=== PATIENT | male | born 1990 | race Caucasian/White ===

== ENCOUNTER → 2019-01-07 | Outpatient (CLI) | payer MEDICARE, MEDICAID ==
[2019-01-07 20:14] LABS: HEMOGLOBIN 11.3 g/dl (13.5-17.5); MEAN CORPUSCULAR HEMOGLOBIN 31.5 pg (27.0-33.0); MEAN CORPUSCULAR HGB CONC 30.5 g/dl (32.0-36.5); MEAN CORPUSCULAR VOLUME 103.1 fl (80.0-96.0); PLATELET COUNT, AUTOMATED 179 10^3/uL (150-450); RED BLOOD COUNT 3.59 10^6/uL (4.30-6.10); WHITE BLOOD COUNT 5.1 10^3/uL (4.0-10.0)
[2019-01-07 20:36] LABS: ALBUMIN 3.4 GM/DL (3.2-5.2); ALT/SGPT 18 U/L (12-78); BILIRUBIN,TOTAL 0.4 MG/DL (0.2-1.0); BLOOD UREA NITROGEN 22 MG/DL (7-18); CALCIUM LEVEL 8.9 MG/DL (8.5-10.1); CARBON DIOXIDE LEVEL 31 MEQ/L (21-32); CHLORIDE LEVEL 107 MEQ/L (98-107); CREATININE FOR GFR 1.41 MG/DL (0.70-1.30); GLOMERULAR FILTRATION RATE > 60.0 (>60); GLUCOSE, FASTING 88 MG/DL (70-100); LDH LACTATE DEHYDROGENASE 179 U/L (87-241); POTASSIUM SERUM 4.6 MEQ/L (3.5-5.1); SODIUM LEVEL 143 MEQ/L (136-145); TOTAL PROTEIN 6.5 GM/DL (6.4-8.2)
== END ==
LOC: M WUC 18:34
DX: C62.12 Malignant neoplasm of descended left testis (principal); Z08 Encounter for follow-up examination after completed treatment for malignant neoplasm

== ENCOUNTER → 2019-03-16 | Outpatient (CLI) | payer MEDICARE, MEDICAID ==
[~2019-03-16] MED LIST: GASTROGRAFIN SOLUTION 30ML (Q9963) As Ordered ONE; ISOVUE-370 76% 100ML VIAL (Q9967) As Ordered ONE
--- NOTE | 2019-03-16 13:18 | REP ---
CT chest with IV contrast: History: Malignant neoplasm of descended left testis. CT contrast dose: 100 mL of intravenous Isovue 370. No comparison study. CT findings: Digital preliminary spider assembler radiograph is unremarkable. There is residual thymic tissue in the anterior mediastinum. No spherical anterior mediastinal mass is seen. No mediastinal adenopathy is observed. No vascular abnormality is seen in the mediastinum. No pleural or pericardial effusion is observed. No pulmonary nodule, mass, or infiltrate is appreciated. There is a small zone of linear left apical pleuroparenchymal scarring. Lung chi are otherwise clear. No bony destructive lesion is appreciated. Impression: No active cardiopulmonary disease. Electronically Signed by Nate Rutherford MD 03/16/2019 01:25 P
--- NOTE | 2019-03-16 13:24 | REP ---
CT abdomen and pelvis with IV and oral contrast: History: Left testicular malignancy. No comparison study. CT contrast dose: 100 mL of intravenous Isovue 370. CT findings: There is a small quantity of pericardial fluid at the base. No significant effusion is seen. No pleural effusion or upper abdominal ascites is seen. The liver and spleen are normal in size and homogeneous in texture. No adrenal lesion is observed. No abnormality is noted in the gallbladder or the pancreas. The kidneys enhance symmetrically. There is no evidence of retroperitoneal lymphadenopathy. No pelvic adenopathy is seen. No urinary tract calculus is seen. Urinary bladder is unremarkable. Prostate and seminal vesicles appear intact. There is some fibrosis in a linear fashion in the left inguinal soft tissues post left orchiectomy. Small and large intestinal bowel loops are unremarkable. No abdominal wall defect is seen. Bone window settings show no bony destructive lesion. Impression: Postoperative changes in the left inguinal soft tissues post left orchiectomy. There is a small quantity of pericardial fluid visible at the base of the heart. Otherwise unremarkable CT study abdomen and pelvis. There is no evidence of retroperitoneal lymphadenopathy. Electronically Signed by Nate Rutherford MD 03/16/2019 01:25 P
== END ==
LOC: M RAD 09:28
DX: C62.12 Malignant neoplasm of descended left testis (principal)
CPT/HCPCS: 71260; 74177; Q9963; Q9967

== ENCOUNTER → 2019-03-20 | Outpatient (CLI) | payer MEDICARE, MEDICAID ==
[2019-03-20 14:56] LABS: BASO % 0.3 % (0.0-1.0); EOS # 0.1 10^3/uL (0.0-0.5); EOS % 1.1 % (0.0-3.0); HEMATOCRIT 46.6 % (42.0-52.0); HEMOGLOBIN 15.7 g/dl (13.5-17.5); LYMPH # 1.6 10^3/uL (1.5-5.0); LYMPH % 26.4 % (24.0-44.0); MEAN CORPUSCULAR HEMOGLOBIN 31.7 pg (27.0-33.0); MEAN CORPUSCULAR HGB CONC 33.7 g/dl (32.0-36.5); MEAN CORPUSCULAR VOLUME 94.1 fl (80.0-96.0); MONO # 0.8 10^3/uL (0.0-0.8); MONO % 12.4 % (0.0-5.0); NEUTROPHILS # 3.6 10^3/uL (1.5-8.5); NEUTROPHILS % 59.5 % (36.0-66.0); PLATELET COUNT, AUTOMATED 191 10^3/uL (150-450); RED BLOOD COUNT 4.95 10^6/uL (4.30-6.10); WHITE BLOOD COUNT 6.1 10^3/uL (4.0-10.0)
== END ==
LOC: M LAB 13:32
PROVIDERS: ATTEND Internal Medicine
DX: E03.9 Hypothyroidism, unspecified (principal); Q90.9 Down syndrome, unspecified

== ENCOUNTER 2019-03-29 17:12 | Emergency (ER) | payer MEDICARE, MEDICAID ==
[~2019-03-29] VITALS: Ht 147.3 cm; Wt 56.2 kg
[2019-03-29] MEDS ORDERED: SYNT100T PO (18:09)
[2019-03-29] MEDS ORDERED: LORA-622 PO (18:10)
[2019-03-29] MEDS ORDERED: GI COCKTAIL 50ML BTL(HYOSCYAMINE/MAALOX/LIDOCAINE VISCOUS)(1:3:1) PO ONE (18:45)
[2019-03-29 19:32] VITALS: BP 125/69
--- NOTE | 2019-03-30 06:38 | REP ---
Soft tissue neck three views: There are no comparisons. The hypopharynx and trachea are distended with air. The prevertebral soft tissues are unremarkable. The epiglottis is unremarkable. No radiopaque foreign body is identified. Vertebral body heights and alignment are unremarkable. Impression: The hypopharynx and trachea are distended with air. No radiopaque foreign body. Electronically Signed by Tye Bass MD 03/30/2019 06:30 A
== END 2019-03-29 19:35 | disposition home or self-care (01) ==
LOC: M ED 17:12
DX: R09.89 Other specified symptoms and signs involving the circulatory and respiratory systems (principal); Z88.0 Allergy status to penicillin; Z88.1 Allergy status to other antibiotic agents

== ENCOUNTER → 2019-04-07 | Outpatient (CLI) | payer MEDICARE, MEDICAID ==
[~2019-04-07] MED LIST changes: -GASTROGRAFIN SOLUTION 30ML (Q9963) As Ordered ONE; -ISOVUE-370 76% 100ML VIAL (Q9967) As Ordered ONE; +LORA-622 PO; +SYNT100T PO
--- NOTE | 2019-04-07 15:52 | REP ---
Left foot four views : There is no fracture or dislocation. Mineralization and joint spaces are normal. There are no calcifications or foreign bodies. Impression: Negative left foot . Electronically Signed by Tye Bass MD 04/07/2019 03:43 P
== END ==
LOC: M WUC 15:06
PROVIDERS: ATTEND Internal Medicine
DX: M79.672 Pain in left foot (principal)

== ENCOUNTER → 2019-04-09 | Outpatient (CLI) | payer MEDICARE, MEDICAID | LOC: M WUC 14:00 | PROVIDERS: ATTEND Internal Medicine Hematology & Oncology | DX: C62.12 Malignant neoplasm of descended left testis (principal) ==

== ENCOUNTER → 2019-06-17 | Outpatient (CLI) | payer MEDICARE, MEDICAID ==
[~2019-06-17] MED LIST changes: +LEVO50TA5 PO
== END ==
LOC: M WUC 09:28
PROVIDERS: ATTEND Internal Medicine
DX: E03.9 Hypothyroidism, unspecified (principal)

== ENCOUNTER → 2019-06-24 | Outpatient (CLI) | payer MEDICARE, MEDICAID ==
[~2019-06-24] MED LIST changes: +GASTROGRAFIN SOLUTION 30ML (Q9963) As Ordered ONE; +ISOVUE-370 76% 100ML VIAL (Q9967) As Ordered ONE
--- NOTE | 2019-06-24 11:26 | REP ---
REASON: Followup. Patient has a history of testicular carcinoma. COMPARISON: 03/16/2019. CONTRAST: 100 mL Isovue 370. For description of the lung bases please see CT report made the same day. The liver, gallbladder, spleen, pancreas, adrenal glands, and kidneys are again seen to be within normal limits and unchanged. Once again, there is bilateral extrarenal pelvis. The abdominal aorta and paraaortic regions are unchanged. Small paraaortic lymph nodes are noted status quo. There is no sveta paraaortic adenopathy. The bowel loops and their mesenteries are essentially unchanged. No mesenteric adenopathy has developed. There is no free fluid or free air. CT PELVIS: The pelvic bowel loops and their mesenteries are unchanged. No pelvic mass or adenopathy has developed. There is no free fluid or free air. Bone window technique throughout the exam shows the osseous structures to be stable and intact. IMPRESSION: No acute disease or significant change in the appearance of the abdomen and pelvis when compared to the prior exam. Electronically Signed by Quirino Bryant DO 06/24/2019 11:53 A
--- NOTE | 2019-06-24 11:30 | REP ---
REASON: History of testicular carcinoma. COMPARISON: Latest prior 03/16/2019, in fact, the only prior. CONTRAST: 100 mL Isovue 370. The anterior mediastinal soft tissue density seen on the prior examination has increased in size. No hilar adenopathy or other abnormalities have developed. There are no pleural effusions. There is a tiny inferior pericardial effusion, which is unchanged. Four a description of the imaged upper abdomen, see abdominal and pelvis CT report made the same day. Evaluation of the lung chi shows no abnormal nodules, masses, or opacities. IMPRESSION: Increased soft tissue density in the anterior mediastinum. Although the finding might represent residual reactive phrenic tissue, it cannot be stated with certainty at this time and especially given the patient's history. This needs to be correlated clinically. Consultation with thoracic surgery is recommended. Consider thoracic MRI before and after intravenous gadolinium. Electronically Signed by Quirino Bryant DO 06/24/2019 11:54 A
== END ==
LOC: M RAD 09:00
PROVIDERS: ATTEND Internal Medicine Hematology
DX: C62.90 Malignant neoplasm of unspecified testis, unspecified whether descended or undescended (principal)
CPT/HCPCS: 71260; 74177; Q9963; Q9967

== ENCOUNTER → 2019-08-27 | Outpatient (CLI) | payer MEDICARE, MEDICAID ==
[~2019-08-27] MED LIST changes: -GASTROGRAFIN SOLUTION 30ML (Q9963) As Ordered ONE; +HYDR-3363 PO; -ISOVUE-370 76% 100ML VIAL (Q9967) As Ordered ONE
[2019-08-27 10:27] LABS: BASO % 0.7 % (0.0-1.0); EOS % 0.7 % (0.0-3.0); HEMOGLOBIN 15.2 g/dl (13.5-17.5); LYMPH # 1.3 10^3/uL (1.5-5.0); LYMPH % 30.3 % (24.0-44.0); MEAN CORPUSCULAR HEMOGLOBIN 32.8 pg (27.0-33.0); MEAN CORPUSCULAR HGB CONC 33.8 g/dl (32.0-36.5); MONO # 0.4 10^3/uL (0.0-0.8); MONO % 10.2 % (0.0-5.0); NEUTROPHILS # 2.5 10^3/uL (1.5-8.5); NEUTROPHILS % 57.9 % (36.0-66.0); PLATELET COUNT, AUTOMATED 137 10^3/uL (150-450); RED BLOOD COUNT 4.64 10^6/uL (4.30-6.10); WHITE BLOOD COUNT 4.3 10^3/uL (4.0-10.0)
[2019-08-27 10:54] LABS: ALT/SGPT 20 U/L (12-78); BILIRUBIN,TOTAL 0.7 MG/DL (0.2-1.0); BLOOD UREA NITROGEN 22 MG/DL (7-18); CARBON DIOXIDE LEVEL 31 MEQ/L (21-32); CHLORIDE LEVEL 107 MEQ/L (98-107); CREATININE FOR GFR 1.13 MG/DL (0.70-1.30); GLOMERULAR FILTRATION RATE > 60.0 (>60); GLUCOSE, FASTING 49 MG/DL (70-100); POTASSIUM SERUM 4.1 MEQ/L (3.5-5.1); SODIUM LEVEL 142 MEQ/L (136-145); TOTAL PROTEIN 6.7 GM/DL (6.4-8.2)
== END ==
LOC: M WUC 08:23
PROVIDERS: ATTEND Internal Medicine Hematology & Oncology
DX: C62.90 Malignant neoplasm of unspecified testis, unspecified whether descended or undescended (principal)

== ENCOUNTER → 2019-09-15 | Outpatient (CLI) | payer MEDICARE, MEDICAID | LOC: M PLARAD 08:33 | PROVIDERS: ATTEND Internal Medicine Hematology & Oncology | DX: Z53.21 Procedure and treatment not carried out due to patient leaving prior to being seen by health care provider (principal) ==

== ENCOUNTER → 2019-12-17 | Outpatient (CLI) | payer MEDICARE, MEDICAID ==
[~2019-12-17] MED LIST changes: +GASTROGRAFIN SOLUTION 30ML (Q9963) As Ordered ONE; +ISOVUE-370 76% 100ML VIAL As Ordered ONE
--- NOTE | 2019-12-22 10:19 | REP ---
CONTRAST ENHANCED CT OF THE ABDOMEN AND PELVIS COMPARISON EXAM: 06/24/2019. CT CONTRAST DOSE: 100 mL of intravenous Isovue-370. REASON FOR EXAM: Follow-up testicular carcinoma. FINDINGS: The liver, gallbladder, spleen, pancreas, adrenal glands, and kidneys are again seen to be within normal limits. Once again, there is an extrarenal pelvis bilaterally status quo. The abdominal aorta and paraaortic region are within normal limits. The bowel loops and their mesenteries are within normal limits. There was no mass or adenopathy. There was no free fluid or free air. Bone window technique throughout the examination showed the osseous structures to be stable and intact. IMPRESSION: No significant change from the prior exam. No evidence of acute disease. MTDD
--- NOTE | 2019-12-22 10:29 | REP ---
CT OF THE CHEST WITH CONTRAST COMPARISON EXAMINATIONS: 06/24/2019 and 03/16/2019. CT CONTRAST DOSE: 100 mL of Isovue-370. REASON FOR EXAM: Follow-up testicular carcinoma. FINDINGS: The anterior mediastinal soft tissue seen on the prior examinations has decreased from the latest prior, but still remains somewhat increased in size when compared to the 03/16/2019 exam. There is no mediastinal adenopathy. There are no pleural or pericardial effusions. The imaged osseous structures are stable and intact. Evaluation of the lung chi show no new abnormal nodules, masses, or opacities. The lung chi remain clear. IMPRESSION: Anterior mediastinal soft tissue as described above and likely representing waxing and waning thymic residua. This should be correlated clinically with appropriate followup. MTDD
== END ==
LOC: M RAD 11:07
PROVIDERS: ATTEND Internal Medicine Hematology & Oncology
DX: C65.9 Malignant neoplasm of unspecified renal pelvis (principal)
CPT/HCPCS: 71260; 74177; Q9963; Q9967

== ENCOUNTER → 2020-04-09 | Outpatient (REF) | payer MEDICARE, MEDICAID ==
[~2020-04-09] MED LIST changes: -GASTROGRAFIN SOLUTION 30ML (Q9963) As Ordered ONE; -ISOVUE-370 76% 100ML VIAL As Ordered ONE
== END ==
LOC: M LAB REF 15:30
PROVIDERS: ATTEND Physician Assistant
DX: J02.9 Acute pharyngitis, unspecified (principal)

== ENCOUNTER → 2020-06-13 | Outpatient (CLI) | payer MEDICARE, MEDICAID ==
[~2020-06-13] MED LIST changes: +ISOVUE-370 76% 100ML VIAL As Ordered ONE
--- NOTE | 2020-06-13 13:22 | REP ---
INDICATION: TESTIS CA. COMPARISON: 12/17/2019 CT abdomen/pelvis. TECHNIQUE: Abdomen/pelvis CT with IV contrast. FINDINGS: The visualized lung chi are unremarkable. The hepatic parenchyma is homogeneous. The gallbladder, pancreas, spleen, adrenals, and kidneys are unremarkable. Bilateral extrarenal pelves are noted as a congenital variation, unchanged. There is no periaortic or mesenteric adenopathy. The abdominal aorta is unremarkable. The bowel and mesentery are unremarkable. Pelvis: The appendix is unremarkable. There is no adenopathy or ascites. The bladder is unremarkable. There are no lytic, blastic or destructive skeletal changes. IMPRESSION: Essentially negative CT of the abdomen pelvis. No interval change. No adenopathy, mass or metastatic disease. <Electronically signed by Tye Bass > 06/13/20 [id number]
== END ==
LOC: M RAD 12:00
PROVIDERS: ATTEND Internal Medicine Hematology & Oncology
DX: C62.90 Malignant neoplasm of unspecified testis, unspecified whether descended or undescended (principal)
CPT/HCPCS: 74177; Q9967

== ENCOUNTER → 2020-12-12 | Outpatient (CLI) | payer MEDICARE, MEDICAID ==
[~2020-12-12] MED LIST changes: -ISOVUE-370 76% 100ML VIAL As Ordered ONE; +LEXA1TAB2 PO
--- NOTE | 2020-12-12 12:45 | REP ---
INDICATION: NEOPLASM OF RENAL PELVIS COMPARISON: 06/13/2020 TECHNIQUE: Axial noncontrast images from the lung bases to the pubic symphysis with coronal and sagittal reformations. This CT examination was performed using the following dose reduction techniques: Automated exposure control, adjustment of mA and/or kv according to the patient's size, and use of iterative reconstruction technique. FINDINGS: Lung bases are clear. A small pericardial effusion is again identified and without change. Liver, spleen, pancreas, gallbladder, bilateral adrenal glands and kidneys are normal for noncontrast evaluation. Specifically, the kidneys are essentially normal by noncontrast evaluation. The enteric system is unremarkable and without obstruction or acute inflammatory process. Normal terminal ileum and appendix identified in the right lower quadrant. Small fat containing periumbilical hernia again noted without acute changes. Pelvis demonstrates normal bladder and age-appropriate prostate/seminal vesicles. Findings suggest prior left orchiectomy. There is increased soft tissue in the right inguinal canal as compared with prior examination and correlation with physical examination is recommended (series 205; images [id number]). No ascites. No free air. No adenopathy. No focal inflammatory stranding. Abdominal aorta without aneurysm. Musculoskeletal structures are intact and without acute osseous abnormality. IMPRESSION: 1. Stable small pericardial effusion. 2. Increased amount of soft tissue in the right inguinal canal is nonspecific and of uncertain clinical significance or etiology. 3. No further acute process appreciated. <Electronically signed by Sandro Montoya > 12/12/20 [id number]
--- NOTE | 2020-12-12 13:02 | REP ---
INDICATION: NEOPLASM OF RENAL PELVIS COMPARISON: 12/17/2019 TECHNIQUE: Axial noncontrast images from the thoracic inlet to the upper abdomen with coronal and sagittal reformations. This CT examination was performed using the following dose reduction techniques: Automated exposure control, adjustment of mA and/or kv according to the patient's size, and use of iterative reconstruction technique. FINDINGS: Bilateral lung chi are relatively symmetric and well aerated. No acute consolidation, significant suspicious nodule or mass lesion identified. No effusion. No pneumothorax. No obvious adenopathy. Mediastinum demonstrates relatively normal thoracic aorta, pulmonary vasculature, and heart. Small amount of pericardial fluid is again identified and unchanged. Small amount of residual thymic tissue is again identified and stable. Surrounding musculoskeletal structures without acute osseous abnormality noted. IMPRESSION: No acute mediastinal or pleuroparenchymal process appreciated. <Electronically signed by Sandro Montoya > 12/12/20 [id number]
== END ==
LOC: M RAD 11:33
PROVIDERS: ATTEND Internal Medicine Hematology & Oncology
DX: C65.9 Malignant neoplasm of unspecified renal pelvis (principal)

== ENCOUNTER 2021-03-24 06:42 | Day surgery (SDC) | payer MEDICARE, MEDICAID ==
[~2021-03-24] VITALS: Ht 157.5 cm; Wt 61.6 kg
[~2021-03-24 06:42] MED LIST changes: +ATIV1TAB10 PO; +DEPA1TAB3 PO; +LR 1,000 ML IV ONE; +SERO50TA PO
[2021-03-24] MEDS ORDERED: fentaNYL 100 MCG/2 ML INJECTION (J3010) As Ordered ONE ×2 (08:06→09:06)
[2021-03-24] MEDS ORDERED: LIDOCAINE W/EPINEPHRINE 1% 20ML VIAL As Ordered ONE (08:06)
[2021-03-24] MEDS ORDERED: propofoL 200 MG/20 ML VIAL As Ordered ONE (08:06)
[2021-03-24] MEDS ORDERED: LIDOCAINE 2% 100MG/5ML SDV (FOR ANES.) As Ordered ONE (08:41)
[2021-03-24] MEDS ORDERED: ONDANSETRON 4MG/2ML VIAL As Ordered ONE ×2 (08:41→09:06)
[2021-03-24] MEDS ORDERED: dexameTHASONE 4 MG/ML 1ML VIAL (J1100 PER 1MG) As Ordered ONE (08:41)
[2021-03-24] MEDS ORDERED: KETOROLAC 60MG 2ML VIAL As Ordered ONE (08:48)
[2021-03-24] MEDS ORDERED: LR 1,000 ML IV SCH ×2 (09:30→09:35)
[2021-03-24] MEDS ORDERED: fentaNYL 100 MCG/2 ML INJECTION (J3010) IV PRN (09:30)
[2021-03-24] MEDS ORDERED: ONDANSETRON 4MG/2ML VIAL IV PRN (09:30)
[2021-03-24] MEDS ORDERED: oxyCODONE 5MG TAB PO PRN (09:30)
[2021-03-24 09:38] VITALS: BP 108/58
== END 2021-03-24 10:00 | disposition home or self-care (01) ==
LOC: M SDC 06:42
PROVIDERS: ATTEND Dentist Oral and Maxillofacial Surgery
DX: K02.9 Dental caries, unspecified (principal); E03.9 Hypothyroidism, unspecified; Q90.9 Down syndrome, unspecified; Z88.0 Allergy status to penicillin; Z92.21 Personal history of antineoplastic chemotherapy; Z85.47 Personal history of malignant neoplasm of testis; Z79.899 Other long term (current) drug therapy
CPT/HCPCS: 88300; D7210; D9223; J1100; J1885; J2405; J3010

== ENCOUNTER → 2021-06-22 | Outpatient (CLI) | payer MEDICARE, MEDICAID ==
[~2021-06-22] MED LIST changes: +ARIP1TAB6; -LR 1,000 ML IV ONE
== END ==
LOC: M RAD 12:36
PROVIDERS: ATTEND Internal Medicine Medical Oncology
DX: C62.90 Malignant neoplasm of unspecified testis, unspecified whether descended or undescended (principal)

== ENCOUNTER → 2021-10-12 | Outpatient (CLI) | payer MEDICARE, MEDICAID ==
[2021-10-12 09:19] LABS: BASO % 0.6 % (0.0-1.0); EOS % 0.6 % (0.0-3.0); HEMATOCRIT 44.2 % (42.0-52.0); HEMOGLOBIN 15.3 g/dl (13.5-17.5); LYMPH # 1.7 10^3/uL (1.5-5.0); LYMPH % 34.7 % (24.0-44.0); MEAN CORPUSCULAR HEMOGLOBIN 31.9 pg (27.0-33.0); MEAN CORPUSCULAR HGB CONC 34.6 g/dl (32.0-36.5); MEAN CORPUSCULAR VOLUME 92.1 fl (80.0-96.0); MONO # 0.4 10^3/uL (0.0-0.8); MONO % 8.4 % (2.0-8.0); NEUTROPHILS # 2.7 10^3/uL (1.5-8.5); NEUTROPHILS % 55.5 % (36.0-66.0); PLATELET COUNT, AUTOMATED 138 10^3/uL (150-450); WHITE BLOOD COUNT 4.9 10^3/uL (4.0-10.0)
[2021-10-12 09:54] LABS: ALBUMIN 3.9 GM/DL (3.2-5.2); ALT/SGPT 22 U/L (12-78); BILIRUBIN,TOTAL 0.7 MG/DL (0.2-1.0); BLOOD UREA NITROGEN 25 MG/DL (7-18); CALCIUM LEVEL 9.1 MG/DL (8.5-10.1); CARBON DIOXIDE LEVEL 28 MEQ/L (21-32); CHLORIDE LEVEL 107 MEQ/L (98-107); CHOLESTEROL LEVEL 144 MG/DL (<200); CHOLESTEROL RISK RATIO 2.571 (<5); CREATININE FOR GFR 1.41 MG/DL (0.70-1.30); GLOMERULAR FILTRATION RATE > 60.0 (>60); GLUCOSE, FASTING 95 MG/DL (70-100); HDL CHOLESTEROL 56 MG/DL (>40); LDL CHOLESTEROL 59 MG/DL (<100); NON-HDL-C 88 MG/DL; POTASSIUM SERUM 4.2 MEQ/L (3.5-5.1); SODIUM LEVEL 139 MEQ/L (136-145); TOTAL PROTEIN 6.9 GM/DL (6.4-8.2); TRIGLYCERIDES LEVEL 146 MG/DL (<150)
[2021-10-12 10:15] LABS: HEMOGLOBIN A1c 5.3 %
== END ==
LOC: M LAB 07:55
PROVIDERS: ATTEND Physician Assistant
DX: Z79.899 Other long term (current) drug therapy (principal); Q90.9 Down syndrome, unspecified; F71 Moderate intellectual disabilities

== ENCOUNTER → 2021-12-12 | Outpatient (CLI) | payer MEDICARE, MEDICAID ==
[~2021-12-12] MED LIST changes: +GASTROGRAFIN SOLUTION 30ML (Q9963) As Ordered ONE; +ISOVUE-370 76% 100ML VIAL As Ordered ONE
== END ==
LOC: M RAD 09:52
PROVIDERS: ATTEND Internal Medicine Hematology & Oncology
DX: K76.0 Fatty (change of) liver, not elsewhere classified (principal); Z85.53 Personal history of malignant neoplasm of renal pelvis
CPT/HCPCS: 71260; 74177; Q9963; Q9967

== ENCOUNTER → 2022-01-18 | Outpatient (CLI) | payer MEDICARE, MEDICAID ==
[~2022-01-18] MED LIST changes: -GASTROGRAFIN SOLUTION 30ML (Q9963) As Ordered ONE; -ISOVUE-370 76% 100ML VIAL As Ordered ONE
[2022-01-18 09:38] LABS: ALBUMIN 3.8 GM/DL (3.2-5.2); BILIRUBIN,TOTAL 0.5 MG/DL (0.2-1.0); CALCIUM LEVEL 8.8 MG/DL (8.5-10.1); CREATININE FOR GFR 1.58 MG/DL (0.70-1.30); GLOMERULAR FILTRATION RATE 55.5 (>60); POTASSIUM SERUM 4.4 MEQ/L (3.5-5.1); THYROID STIMULATING HORMONE 4.51 uIU/ML (0.358-3.740); TOTAL PROTEIN 6.9 GM/DL (6.4-8.2)
== END ==
LOC: M LAB 07:32
PROVIDERS: ATTEND Internal Medicine
DX: E03.9 Hypothyroidism, unspecified (principal); Z79.890 Hormone replacement therapy

== ENCOUNTER → 2022-07-09 | Outpatient (CLI) | payer MEDICARE, MEDICAID ==
[~2022-07-09] MED LIST changes: +ACET1TAB55 PO; +BUSP15TA47; +IBUP200C25 PO; +LORA1TAB23; +RISP-8
[2022-07-09 08:06] LABS: BASO % 0.7 % (0.0-1.0); EOS % 0.4 % (0.0-3.0); HEMATOCRIT 45.1 % (42.0-52.0); HEMOGLOBIN 15.1 g/dl (13.5-17.5); LYMPH # 1.5 10^3/uL (1.5-5.0); MEAN CORPUSCULAR HEMOGLOBIN 32.3 pg (27.0-33.0); MEAN CORPUSCULAR HGB CONC 33.5 g/dl (32.0-36.5); MEAN CORPUSCULAR VOLUME 96.6 fl (80.0-96.0); MONO # 0.4 10^3/uL (0.0-0.8); MONO % 6.6 % (2.0-8.0); NEUTROPHILS # 3.7 10^3/uL (1.5-8.5); NEUTROPHILS % 64.9 % (36.0-66.0); PLATELET COUNT, AUTOMATED 163 10^3/uL (150-450); RED BLOOD COUNT 4.67 10^6/uL (4.30-6.10); WHITE BLOOD COUNT 5.6 10^3/uL (4.0-10.0)
[2022-07-09 08:32] LABS: HEMOGLOBIN A1c 5.1 % (4.0-6.0)
[2022-07-09 08:42] LABS: ALBUMIN 3.8 G/DL (3.2-5.2); ALKALINE PHOSPHATASE 87 U/L (46-116); ALT/SGPT 11 U/L (7.0-40); AST/SGOT 24 U/L (<34); BILIRUBIN,TOTAL 0.5 MG/DL (0.3-1.2); BLOOD UREA NITROGEN 24 MG/DL (9-23); CALCIUM LEVEL 8.8 MG/DL (8.5-10.1); CARBON DIOXIDE LEVEL 28 MMOL/L (20-31); CHLORIDE LEVEL 108 MMOL/L (98-107); CHOLESTEROL LEVEL 165 MG/DL (<200); CHOLESTEROL RISK RATIO 3.68 (<5); CREATININE FOR GFR 1.41 MG/DL (0.70-1.30); GLOMERULAR FILTRATION RATE > 60.0 (>60); GLUCOSE, FASTING 97 MG/DL (60-100); HDL CHOLESTEROL 44.8 MG/DL (>40); LDL CHOLESTEROL 86.6 MG/DL (<100); NON-HDL-C 120.2 MG/DL; POTASSIUM SERUM 4.4 MMOL/L (3.5-5.1); SODIUM LEVEL 142 MMOL/L (136-145); TOTAL PROTEIN 6.8 G/DL (5.7-8.2); TRIGLYCERIDES LEVEL 168 MG/DL (<150)
[2022-07-09 08:44] LABS: PROLACTIN 74.21 NG/ML (2.1-17.7)
== END ==
LOC: M LAB 07:22
PROVIDERS: ATTEND Physician Assistant
DX: E03.9 Hypothyroidism, unspecified (principal); Z79.899 Other long term (current) drug therapy

== ENCOUNTER → 2022-07-09 | Outpatient (CLI) | payer MEDICARE, MEDICAID | LOC: M LAB 07:25 | PROVIDERS: ATTEND Internal Medicine | DX: E03.9 Hypothyroidism, unspecified (principal) ==

== ENCOUNTER → 2022-09-23 | Outpatient (CLI) | payer MEDICARE, MEDICAID ==
[2022-09-23 09:30] LABS: BASO % 0.7 % (0.0-1.0); EOS % 0.4 % (0.0-3.0); HEMATOCRIT 42.7 % (42.0-52.0); HEMOGLOBIN 14.4 g/dl (13.5-17.5); LYMPH # 1.6 10^3/uL (1.5-5.0); LYMPH % 29.2 % (24.0-44.0); MEAN CORPUSCULAR HEMOGLOBIN 32.6 pg (27.0-33.0); MEAN CORPUSCULAR HGB CONC 33.7 g/dl (32.0-36.5); MEAN CORPUSCULAR VOLUME 96.6 fl (80.0-96.0); MONO # 0.5 10^3/uL (0.0-0.8); MONO % 9.1 % (2.0-8.0); NEUTROPHILS # 3.4 10^3/uL (1.5-8.5); NEUTROPHILS % 60.2 % (36.0-66.0); PLATELET COUNT, AUTOMATED 156 10^3/uL (150-450); RED BLOOD COUNT 4.42 10^6/uL (4.30-6.10); WHITE BLOOD COUNT 5.6 10^3/uL (4.0-10.0)
[2022-09-23 09:55] LABS: ALBUMIN 3.9 G/DL (3.2-5.2); ALKALINE PHOSPHATASE 89 U/L (46-116); ALT/SGPT 12 U/L (7.0-40); AST/SGOT 17 U/L (<34); BILIRUBIN,TOTAL 0.6 MG/DL (0.3-1.2); BLOOD UREA NITROGEN 24 MG/DL (9-23); CALCIUM LEVEL 8.7 MG/DL (8.5-10.1); CARBON DIOXIDE LEVEL 27 MMOL/L (20-31); CHLORIDE LEVEL 108 MMOL/L (98-107); CHOLESTEROL LEVEL 157 MG/DL (<200); CHOLESTEROL RISK RATIO 3.55 (<5); GLOMERULAR FILTRATION RATE > 60.0 (>60); GLUCOSE, FASTING 96 MG/DL (60-100); HDL CHOLESTEROL 44.2 MG/DL (>40); NON-HDL-C 112.8 MG/DL; POTASSIUM SERUM 4.5 MMOL/L (3.5-5.1); SODIUM LEVEL 144 MMOL/L (136-145); TOTAL PROTEIN 6.4 G/DL (5.7-8.2); TRIGLYCERIDES LEVEL 184 MG/DL (<150)
[2022-09-23 09:57] LABS: PROLACTIN 73.55 NG/ML (2.1-17.7)
[2022-09-23 10:15] LABS: HEMOGLOBIN A1c 5.2 % (4.0-6.0)
== END ==
LOC: M LAB 08:34
PROVIDERS: ATTEND Physician Assistant
DX: Z79.899 Other long term (current) drug therapy (principal)

== ENCOUNTER → 2022-12-19 | Outpatient (CLI) | payer MEDICARE, MEDICAID | LOC: M PLAIMG 14:06 | PROVIDERS: ATTEND Nurse Practitioner | DX: C62.90 Malignant neoplasm of unspecified testis, unspecified whether descended or undescended (principal) ==

== ENCOUNTER → 2023-05-06 | Outpatient (CLI) | payer MEDICARE, MEDICAID ==
[~2023-05-06] MED LIST changes: +BACT800T5 PO; +RISP-105; -RISP-8
[2023-05-06 16:22] LABS: BASO % 0.6 % (0.0-1.0); EOS % 0.6 % (0.0-3.0); HEMATOCRIT 41.4 % (42.0-52.0); HEMOGLOBIN 13.6 g/dl (13.5-17.5); LYMPH % 32.6 % (24.0-44.0); MEAN CORPUSCULAR HEMOGLOBIN 32.6 pg (27.0-33.0); MEAN CORPUSCULAR HGB CONC 32.9 g/dl (32.0-36.5); MEAN CORPUSCULAR VOLUME 99.3 fl (80.0-96.0); MONO # 0.6 10^3/uL (0.0-0.8); MONO % 8.9 % (2.0-8.0); NEUTROPHILS # 3.5 10^3/uL (1.5-8.5); NEUTROPHILS % 56.2 % (36.0-66.0); PLATELET COUNT, AUTOMATED 177 10^3/uL (150-450); RED BLOOD COUNT 4.17 10^6/uL (4.30-6.10); WHITE BLOOD COUNT 6.3 10^3/uL (4.0-10.0)
[2023-05-06 16:29] LABS: THYROID STIMULATING HORMONE 3.907 uIU/ML (0.55-4.78)
[2023-05-06 16:32] LABS: ALBUMIN 3.5 G/DL (3.2-5.2); ALKALINE PHOSPHATASE 88 U/L (46-116); ALT/SGPT 25 U/L (7.0-40); AST/SGOT 28 U/L (<34); BILIRUBIN,TOTAL 0.4 MG/DL (0.3-1.2); BLOOD UREA NITROGEN 18 MG/DL (9-23); CALCIUM LEVEL 8.5 MG/DL (8.5-10.1); CARBON DIOXIDE LEVEL 28 MMOL/L (20-31); CHLORIDE LEVEL 110 MMOL/L (98-107); CREATININE FOR GFR 1.36 MG/DL (0.70-1.30); GLOMERULAR FILTRATION RATE > 60.0 (>60); GLUCOSE, FASTING 77 MG/DL (60-100); POTASSIUM SERUM 4.3 MMOL/L (3.5-5.1); SODIUM LEVEL 139 MMOL/L (136-145); TOTAL PROTEIN 6.1 G/DL (5.7-8.2)
== END ==
LOC: M WUC 12:00
PROVIDERS: ATTEND Internal Medicine
DX: N18.1 Chronic kidney disease, stage 1 (principal); E03.9 Hypothyroidism, unspecified

== ENCOUNTER → 2023-09-25 | Outpatient (CLI) | payer MEDICARE, MEDICAID | LOC: M LAB 13:19 | PROVIDERS: ATTEND Internal Medicine | DX: E03.9 Hypothyroidism, unspecified (principal) ==

== ENCOUNTER → 2024-03-27 | Outpatient (CLI) | payer MEDICARE, MEDICAID ==
[2024-03-27 08:57] LABS: ALBUMIN 3.5 G/DL (3.2-5.2); BILIRUBIN,TOTAL 0.4 MG/DL (0.3-1.2); CALCIUM LEVEL 9.5 MG/DL (8.5-10.1); CHOLESTEROL RISK RATIO 3.83 (<5); CREATININE FOR GFR 1.46 MG/DL (0.70-1.30); GLOMERULAR FILTRATION RATE 59.6 (>60); POTASSIUM SERUM 4.6 MMOL/L (3.5-5.1); TOTAL PROTEIN 6.9 G/DL (5.7-8.2)
[2024-03-27 08:59] LABS: THYROID STIMULATING HORMONE 13.224 uIU/ML (0.55-4.78)
== END ==
LOC: M LAB 07:18
PROVIDERS: ATTEND Internal Medicine
DX: E03.9 Hypothyroidism, unspecified (principal); Z79.899 Other long term (current) drug therapy

== ENCOUNTER → 2024-03-27 | Outpatient (CLI) | payer MEDICARE, MEDICAID ==
[2024-03-27 08:28] LABS: BASO % 0.7 % (0.0-1.0); EOS # 0.1 10^3/uL (0.0-0.5); EOS % 0.9 % (0.0-3.0); HEMATOCRIT 42.1 % (42.0-52.0); HEMOGLOBIN 14.3 g/dl (13.5-17.5); LYMPH # 1.5 10^3/uL (1.5-5.0); LYMPH % 25.8 % (24.0-44.0); MEAN CORPUSCULAR HEMOGLOBIN 32.1 pg (27.0-33.0); MEAN CORPUSCULAR VOLUME 94.4 fl (80.0-96.0); MONO # 0.4 10^3/uL (0.0-0.8); MONO % 7.2 % (2.0-8.0); NEUTROPHILS # 3.7 10^3/uL (1.5-8.5); NEUTROPHILS % 63.7 % (36.0-66.0); PLATELET COUNT, AUTOMATED 201 10^3/uL (150-450); RED BLOOD COUNT 4.46 10^6/uL (4.30-6.10); WHITE BLOOD COUNT 5.9 10^3/uL (4.0-10.0)
[2024-03-27 08:57] LABS: HEMOGLOBIN A1c 5.5 % (4.0-6.0)
[2024-03-27 08:59] LABS: PROLACTIN 44.83 NG/ML (2.1-17.7)
[2024-03-27 09:00] LABS: ALBUMIN 3.7 G/DL (3.2-5.2); BILIRUBIN,TOTAL 0.3 MG/DL (0.3-1.2); CALCIUM LEVEL 8.9 MG/DL (8.5-10.1); CHOLESTEROL RISK RATIO 3.95 (<5); CREATININE FOR GFR 1.47 MG/DL (0.70-1.30); GLOMERULAR FILTRATION RATE 59.1 (>60); HDL CHOLESTEROL 41.7 MG/DL (>40); LDL CHOLESTEROL 83.1 MG/DL (<100); NON-HDL-C 123.3 MG/DL; POTASSIUM SERUM 4.6 MMOL/L (3.5-5.1); TOTAL PROTEIN 6.7 G/DL (5.7-8.2)
== END ==
LOC: M LAB 07:15
PROVIDERS: ATTEND Physician Assistant
DX: Z79.899 Other long term (current) drug therapy (principal)